=== PATIENT | male | born 1965 | race African-American/Black ===

== ENCOUNTER 2016-07-09 10:12 | Inpatient (IN) | payer OTHER ==
[2016-07-09 11:13] VITALS: BMI 21.2
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
[2016-07-09] MEDS ORDERED: P-EPHED 60MG/TRIPROLIDI 2.5MG TABLET PO PRN (12:58)
[2016-07-09] MEDS ORDERED: LOPERAMIDE HCL 2 MG CAPSULE PO PRN (12:58)
[2016-07-09] MEDS ORDERED: MAG HYDROX/AL HYDROX/SIMETH 30 ML UNIT-DOSE CUP PO PRN (12:58)
[2016-07-09] MEDS ORDERED: chlordiazePOXIDE HCL 25 MG CAPSULE PO PRN (12:58)
[2016-07-09] MEDS ORDERED: MENTHOL/PHENOL 1 EACH UD MM PRN (12:58)
[2016-07-09] MEDS ORDERED: hydrOXYzine PAMOATE 25 MG CAPSULE (FP) PO PRN (12:58)
[2016-07-09] MEDS ORDERED: diphenhydrAMINE HCL 50 MG CAPSULE PO PRN (12:58)
[2016-07-09] MEDS ORDERED: MAGNESIUM HYDROX 2400MG/30ML ORAL SUSPENSION 30 ML CUP PO PRN (12:58)
[2016-07-09] MEDS ORDERED: MAGNESIUM CITRATE 300 ML BOTTLE PO PRN (12:58)
[2016-07-09] MEDS ORDERED: IBUPROFEN 400 MG TABLET (FP) PO PRN (12:58)
[2016-07-09] MEDS ORDERED: ACETAMINOPHEN 325 MG TABLET (FP) PO PRN (12:58)
[2016-07-09] MEDS ORDERED: guaiFENesin/D-METHORPHAN HB 10 ML UNIT-DOSE CUPS PO PRN (12:58)
[2016-07-09] MEDS ORDERED: chlordiazePOXIDE HCL 25 MG CAPSULE PO ONE (14:10)
--- NOTE | 2016-07-09 14:27 | CONSULT ---
[facility] Psychiatric Consult - Data Date of interview: 07/09/16 Admission source: [facility] Identifying data: This is 51 years old male with no psychiatric hospitalization history intoxicated with: Alcohol, Cocaine and Cannabis Substance Abuse History: - Smoking Cessation. Smoking history: Current every day smoker. Have you smoked in the past 12 months: Yes. Aproximately how many cigarettes per day: 5. Hx Chewing Tobacco Use: No. Initiated information on smoking cessation: Yes. 'Breaking Loose' booklet given: 07/09/16. - Substance & Tx. History. Hx Alcohol Use: Yes (BEER/COGNAC). Hx Substance Use: Yes (CRACK /MARIJUANA). Substance Use Type: Alcohol, Cocaine, Marijuana. Hx Sub[facility] - Substances Abused. Crack. Route: Smoking. Frequency: Daily. Amount used: $50. Age of first use: 19. Date of Last Use: 07/08/16. Alcohol-beer/cognac. Route: Oral. Frequency: Daily. Amount used: 1 /2 6 pks.//2 pt. Age of first use: 17. Date of Last Use: . Marijuana. Route: Smoking. Frequency: Daily. Amount used: $20. Age of first use: 15. Date of Last Use: 07/08/16 Medical History: Asthma Psychiatric History: Patient reports hiostory of depression and anxiety, reports taking prior to admisison: Zyprexa 10 mg po qhs. Cymbalta 20mg poqd Physical/Sexual Abuse/Trauma History: Denies Additional Comment: [id number] po qhs. Cymbalta 20mg poqd Mental Status Exam - Mental Status Exam Alert and Oriented to: Person Cognitive Function: Fair Patient Appearance: Well Groomed Mood: Euthymic Affect: Mood Congruent Patient Behavior: Cooperative Speech Pattern: Appropriate Voice Loudness: Normal Thought Process: Goal Oriented Thought Disorder: Being Controlled Hallucinations: Denies Suicidal Ideation: Denies Homicidal Ideation: Denies Insight/Judgement: Fair Sleep: Difficulty falling asleep Appetite: Weight loss Muscle strength/Tone: Normal Gait/Station: Normal Additional Comments: [id number] po qhs. Cymbalta 20mg poqd Psychiatric Findings - Problem List ([place] 1, 2,3) (1) Alcohol dependence with uncomplicated withdrawal Current Visit: Yes Status: Acute (2) Cannabis dependence, uncomplicated Current Visit: Yes Status: Acute (3) Cocaine dependence, uncomplicated Current Visit: Yes Status: Acute (4) Drug-induced mood disorder Current Visit: Yes Status: Acute - Initial Treatment Plan Initial Treatment Plan: Zyprexa 5mg po qhs. Cymbalta 20mg poqd
[2016-07-09 14:28] LABS: HIV 1 & 2 AB NEGATIVE; HIV 1 AGp24 NEGATIVE
[2016-07-09] MEDS: DULoxetine HCL 20 MG CAPSULE.DR (FP) PO SCH (15:06)
[2016-07-09] MEDS: NICOTINE POLACRILEX 2 MG GUM BUC PRN (15:06)
[2016-07-09] MEDS: NICOTINE 14 MG/24 HOURS TOPICAL PATCH TD SCH (15:06)
--- NOTE | 2016-07-09 16:38 | EKG ---
Test Reason : Blood Pressure : / mmHG Vent. Rate : 057 BPM Atrial Rate : 057 BPM P-R Int : 132 ms QRS Dur : 078 ms QT Int : 430 ms P-R-T Axes : 021 023 012 degrees QTc Int : 418 ms SINUS BRADYCARDIA OTHERWISE NORMAL ECG NO PREVIOUS ECGS AVAILABLE Confirmed by YASH ELLIOTT MD ([id number]) on 07/09/2016 4:37:41 PM Referred By: Confirmed By:YASH ELLIOTT MD
[2016-07-09] MEDS: chlordiazePOXIDE HCL 25 MG CAPSULE PO SCH ×2 (17:31→22:02)
[2016-07-09 17:47] LABS: URINE APPEARANCE CLEAR; URINE BILIRUBIN NEGATIVE (NEGATIVE); URINE BLOOD NEGATIVE (NEGATIVE); URINE COLOR DKYELLOW; URINE GLUCOSE (UA) NEGATIVE (NEGATIVE); URINE KETONE 1+ (NEGATIVE); URINE LEUK ESTERASE NEGATIVE (NEGATIVE); URINE NITRITE NEGATIVE (NEGATIVE); URINE UROBILINOGEN NEGATIVE E.U./dl (0.2-1.0)
[2016-07-09 17:52] LABS: URINE PROTEIN 1+ (NEGATIVE)
[2016-07-09 18:27] LABS: URINE MUCUS MANY; URINE RBC 2 /hpf (0-3); URINE WBC 3 /hpf (3-5)
[2016-07-09] MEDS: THIAMINE HCL 100 MG TABLET (FP) PO SCH (22:02)
[2016-07-09] MEDS: OLANZapine 5 MG TABLET PO SCH (22:03)
[2016-07-10] MEDS: chlordiazePOXIDE HCL 25 MG CAPSULE PO SCH ×4 (06:06→22:27)
[2016-07-10 10:22] LABS: MCH 32.4 pg (25.7-33.7); MCHC 33.8 g/dl (32.0-35.9); MEAN CELL VOLUME 95.8 fl (80-96); MEAN PLT VOLUME 9.5 fl (7.5-11.1); PLATELET COUNT 222 K/MM3 (134-434); RDW 13.1 % (11.9-15.9); WHITE BLOOD COUNT 5.3 K/mm3 (4.0-10.0)
[2016-07-10] MEDS: PRENATAL VITAMINS W/ FOLIC ACID TABLET (FP) PO SCH (10:22)
[2016-07-10] MEDS: NICOTINE 14 MG/24 HOURS TOPICAL PATCH TD SCH (10:22)
[2016-07-10] MEDS: NICOTINE POLACRILEX 2 MG GUM BUC PRN (10:22)
[2016-07-10] MEDS: DULoxetine HCL 20 MG CAPSULE.DR (FP) PO SCH (10:22)
[2016-07-10 10:48] LABS: ALBUMIN 4.3 g/dl (3.4-5.0); BILIRUBIN,TOTAL 0.6 mg/dL (0.2-1.0); CALCIUM 9.3 mg/dL (8.5-10.1); COCKROFT - GAULT 52.4; CREATININE 1.4 mg/dL (0.7-1.3); TOT PROT 7.5 g/dl (6.4-8.2)
[2016-07-10 11:16] LABS: SICKLE CELL SCREEN NEGATIVE (NEGATIVE)
--- NOTE | 2016-07-10 12:18 | PN ---
[facility] CIWA - CIWA Score Nausea/Vomitin-Mild Nausea/No Vomiting Muscle Tremors: 4-Moderate,w/Arms Extend Anxiety: 3 Agitation: 4-Moderately Restless Paroxysmal Sweats: 4-Forehead w/Sweat Beads Orientation: 0-Oriented Tacttile Disturbances: 3-Moderate Itch/Numb/Burn Auditory Disturbances: 0-None Visual Disturbances: 0-None Headache: 0-None Present CIWA-Ar Total Score: 19 BHS Progress Note (SOAP) Subjective: Tremors, Anxious, Sweating. Objective: PT. A & O X 3. NO ACUTE DISTRESS. 07/10/16 12:15 Vital Signs Temperature 96.7 F L 07/10/16 10:16 Pulse Rate 72 07/10/16 10:16 Respiratory Rate 18 07/10/16 10:16 Blood Pressure 124/84 07/10/16 10:16 O2 Sat by Pulse Oximetry (%) Laboratory Tests 07/09/16 07/09/16 07/10/16 12:40 14:00 06:00 WBC 5.3 RBC 4.29 Hgb 13.9 Hct 41.1 MCV 95.8 MCHC 33.8 RDW 13.1 Plt Count 222 MPV 9.5 Sickle Cell Screen Negative Sodium Potassium Chloride Carbon Dioxide Anion Gap BUN Creatinine Creat Clearance w eGFR Random Glucose Calcium Total Bilirubin AST ALT Alkaline Phosphatase Total Protein Albumin Urine Color Dkyellow Urine Appearance Clear Urine pH 5.0 Ur Specific [place] >= 1.030 H Urine Protein 1+ H Urine Glucose (UA) Negative Urine Ketones 1+ H Urine Blood Negative Urine Nitrite Negative Urine Bilirubin Negative Urine Urobilinogen Negative Ur Leukocyte Esterase Negative Urine RBC 2 Urine WBC 3 Ur Epithelial Cells Rare Urine Mucus Many HIV 1&2 Antibody Screen Negative HIV P24 Antigen Negative 07/10/16 06:00 WBC RBC Hgb Hct MCV MCHC RDW Plt Count MPV Sickle Cell Screen Sodium 143 Potassium 3.7 Chloride 105 Carbon Dioxide 29 D Anion Gap 9 BUN 31 H D Creatinine 1.4 H D Creat Clearance w eGFR 53.86 Random Glucose 149 H D Calcium 9.3 Total Bilirubin 0.6 D AST 13 L D ALT 19 Alkaline Phosphatase 110 D Total Protein 7.5 Albumin 4.3 Urine Color Urine Appearance Urine pH Ur Specific [place] Urine Protein Urine Glucose (UA) Urine Ketones Urine Blood Urine Nitrite Urine Bilirubin Urine Urobilinogen Ur Leukocyte Esterase Urine RBC Urine WBC Ur Epithelial Cells Urine Mucus HIV 1&2 Antibody Screen HIV P24 Antigen LABS NOTED. Assessment: 07/10/16 12:15 WITHDRAWAL SYMPTOMS. Plan: CONTINUE DETOX. D/C MAGNESIUM CONTAINING MEDS. BGM ACBK TOMORROW FOR ELEVATED ADMISSION RANDOM GLUCOSE LEVEL. ADVISED PATIENT TO FOLLOW-UP WITH HEEL SEAT LASTER AFTER DISCHARGE FROM DETOX FOR GENERAL MEDICAL ASSESSMENT AND FOR ABNORMAL ADMISSION RENAL AND UA VALUES.
[2016-07-10] MEDS: OLANZapine 5 MG TABLET PO SCH (22:27)
[2016-07-10] MEDS: THIAMINE HCL 100 MG TABLET (FP) PO SCH (22:27)
[2016-07-11] MEDS: chlordiazePOXIDE HCL 25 MG CAPSULE PO SCH ×2 (05:50→10:16)
[2016-07-11] MEDS: PRENATAL VITAMINS W/ FOLIC ACID TABLET (FP) PO SCH (10:15)
[2016-07-11] MEDS: DULoxetine HCL 20 MG CAPSULE.DR (FP) PO SCH (10:15)
[2016-07-11] MEDS: NICOTINE 14 MG/24 HOURS TOPICAL PATCH TD SCH (10:15)
[2016-07-11] MEDS: NICOTINE POLACRILEX 2 MG GUM BUC PRN (10:35)
--- NOTE | 2016-07-11 14:50 | PN ---
[facility] CIWA - CIWA Score Nausea/Vomitin-Mild Nausea/No Vomiting Muscle Tremors: 3 Anxiety: 3 Agitation: 4-Moderately Restless Paroxysmal Sweats: 2 Orientation: 2-Disoriented Date<2 days Tacttile Disturbances: 2-Mild Itch/Numbness/Burn Auditory Disturbances: 0-None Visual Disturbances: 0-None Headache: 0-None Present CIWA-Ar Total Score: 17 S Progress Note (SOAP) Subjective: Fatigue, Tremors, Sweating. Objective: PT. A & O X 2 (DISORIENTED ABOUT DAY / DATE). PT. OBSERVED AMBULATING ON UNIT. NO ACUTE DISTRESS. PT. DENIES CHEST PAIN. 07/11/16 14:47 Vital Signs Temperature 96.1 F L 07/11/16 13:02 Pulse Rate 57 L 07/11/16 13:02 Respiratory Rate 18 07/11/16 13:02 Blood Pressure 142/92 07/11/16 13:02 O2 Sat by Pulse Oximetry (%) Laboratory Tests 07/09/16 07/09/16 07/10/16 12:40 14:00 06:00 WBC 5.3 RBC 4.29 Hgb 13.9 Hct 41.1 MCV 95.8 MCHC 33.8 RDW 13.1 Plt Count 222 MPV 9.5 Sickle Cell Screen Negative Sodium Potassium Chloride Carbon Dioxide Anion Gap BUN Creatinine Creat Clearance w eGFR POC Glucometer Random Glucose Calcium Total Bilirubin AST ALT Alkaline Phosphatase Total Protein Albumin Urine Color Dkyellow Urine Appearance Clear Urine pH 5.0 Ur Specific [place] >= 1.030 H Urine Protein 1+ H Urine Glucose (UA) Negative Urine Ketones 1+ H Urine Blood Negative Urine Nitrite Negative Urine Bilirubin Negative Urine Urobilinogen Negative Ur Leukocyte Esterase Negative Urine RBC 2 Urine WBC 3 Ur Epithelial Cells Rare Urine Mucus Many RPR Titer HIV 1&2 Antibody Screen Negative HIV P24 Antigen Negative 07/10/16 07/10/16 07/11/16 06:00 06:00 05:49 WBC RBC Hgb Hct MCV MCHC RDW Plt Count MPV Sickle Cell Screen Sodium 143 Potassium 3.7 Chloride 105 Carbon Dioxide 29 D Anion Gap 9 BUN 31 H D Creatinine 1.4 H D Creat Clearance w eGFR 53.86 POC Glucometer 93 Random Glucose 149 H D Calcium 9.3 Total Bilirubin 0.6 D AST 13 L D ALT 19 Alkaline Phosphatase 110 D Total Protein 7.5 Albumin 4.3 Urine Color Urine Appearance Urine pH Ur Specific [place] Urine Protein Urine Glucose (UA) Urine Ketones Urine Blood Urine Nitrite Urine Bilirubin Urine Urobilinogen Ur Leukocyte Esterase Urine RBC Urine WBC Ur Epithelial Cells Urine Mucus RPR Titer Nonreactive HIV 1&2 Antibody Screen HIV P24 Antigen LABS NOTED. Assessment: 07/11/16 14:48 WITHDRAWAL SYMPTOMS. Plan: CONTINUE DETOX. ADVISED PATIENT TO FOLLOW-UP WITH FLOORING SALES MANAGER AFTER DISCHARGE FROM DETOX FOR GENERAL MEDICAL ASSESSMENT AND FOR ABNORMAL ADMISSION RENAL LAB VALUES (BUN, CREATININE , GFR).
[2016-07-11] MEDS: chlordiazePOXIDE 5 MG CAPSULE PO SCH ×2 (17:22→22:33)
[2016-07-11] MEDS: OLANZapine 5 MG TABLET PO SCH (22:33)
[2016-07-11] MEDS: THIAMINE HCL 100 MG TABLET (FP) PO SCH (22:33)
[2016-07-12] MEDS: chlordiazePOXIDE 5 MG CAPSULE PO SCH ×2 (05:28→10:34)
[2016-07-12] MEDS: PRENATAL VITAMINS W/ FOLIC ACID TABLET (FP) PO SCH (10:33)
[2016-07-12] MEDS: NICOTINE 14 MG/24 HOURS TOPICAL PATCH TD SCH (10:34)
[2016-07-12] MEDS: NICOTINE POLACRILEX 2 MG GUM BUC PRN ×2 (10:35→17:23)
[2016-07-12] MEDS: DULoxetine HCL 20 MG CAPSULE.DR (FP) PO SCH (10:53)
--- NOTE | 2016-07-12 14:28 | PN ---
BHS Progress Note (SOAP) Subjective: Anxious, sweating, chills Objective: 07/12/16 14:24 Last Vital Signs Temp Pulse Resp BP Pulse Ox 97.4 F L 63 18 144/80 07/12/16 13:28 07/12/16 13:28 07/12/16 13:28 07/12/16 13:28 Laboratory Tests 07/09/16 07/09/16 07/10/16 12:40 14:00 06:00 WBC 5.3 RBC 4.29 Hgb 13.9 Hct 41.1 MCV 95.8 MCHC 33.8 RDW 13.1 Plt Count 222 MPV 9.5 Sickle Cell Screen Negative Sodium Potassium Chloride Carbon Dioxide Anion Gap BUN Creatinine Creat Clearance w eGFR POC Glucometer Random Glucose Calcium Total Bilirubin AST ALT Alkaline Phosphatase Total Protein Albumin Urine Color Dkyellow Urine Appearance Clear Urine pH 5.0 Ur Specific [place] >= 1.030 H Urine Protein 1+ H Urine Glucose (UA) Negative Urine Ketones 1+ H Urine Blood Negative Urine Nitrite Negative Urine Bilirubin Negative Urine Urobilinogen Negative Ur Leukocyte Esterase Negative Urine RBC 2 Urine WBC 3 Ur Epithelial Cells Rare Urine Mucus Many RPR Titer HIV 1&2 Antibody Screen Negative HIV P24 Antigen Negative 07/10/16 07/10/16 07/11/16 06:00 06:00 05:49 WBC RBC Hgb Hct MCV MCHC RDW Plt Count MPV Sickle Cell Screen Sodium 143 Potassium 3.7 Chloride 105 Carbon Dioxide 29 D Anion Gap 9 BUN 31 H D Creatinine 1.4 H D Creat Clearance w eGFR 53.86 POC Glucometer 93 Random Glucose 149 H D Calcium 9.3 Total Bilirubin 0.6 D AST 13 L D ALT 19 Alkaline Phosphatase 110 D Total Protein 7.5 Albumin 4.3 Urine Color Urine Appearance Urine pH Ur Specific [place] Urine Protein Urine Glucose (UA) Urine Ketones Urine Blood Urine Nitrite Urine Bilirubin Urine Urobilinogen Ur Leukocyte Esterase Urine RBC Urine WBC Ur Epithelial Cells Urine Mucus RPR Titer Nonreactive HIV 1&2 Antibody Screen HIV P24 Antigen 07/12/16 06:02 WBC RBC Hgb Hct MCV MCHC RDW Plt Count MPV Sickle Cell Screen Sodium Potassium Chloride Carbon Dioxide Anion Gap BUN Creatinine Creat Clearance w eGFR POC Glucometer 93 Random Glucose Calcium Total Bilirubin AST ALT Alkaline Phosphatase Total Protein Albumin Urine Color Urine Appearance Urine pH Ur Specific [place] Urine Protein Urine Glucose (UA) Urine Ketones Urine Blood Urine Nitrite Urine Bilirubin Urine Urobilinogen Ur Leukocyte Esterase Urine RBC Urine WBC Ur Epithelial Cells Urine Mucus RPR Titer HIV 1&2 Antibody Screen HIV P24 Antigen Labs noted: Bun 31, serum creatinine 1.4, GFR 53.86, UA: 1+ protein Assessment: 07/12/16 14:26 Withdrawal symptoms Noted with prerenal azotemia and proteinuria Plan: Continue detox Prerenal azotemia: encouraged to drink lots of water Proteinuria: encouraged to drink more water
[2016-07-12] MEDS: chlordiazePOXIDE HCL 10 MG CAPSULE PO SCH ×2 (17:22→22:04)
[2016-07-12] MEDS: THIAMINE HCL 100 MG TABLET (FP) PO SCH (22:03)
[2016-07-12] MEDS: OLANZapine 5 MG TABLET PO SCH (22:04)
[2016-07-13 06:10] VITALS: BP 138/84; PULSE 69; TEMP 96.9
[2016-07-13] MEDS: chlordiazePOXIDE HCL 10 MG CAPSULE PO SCH (06:31)
[2016-07-13] MEDS: DULoxetine HCL 20 MG CAPSULE.DR (FP) PO SCH (09:19)
[2016-07-13] MEDS: PRENATAL VITAMINS W/ FOLIC ACID TABLET (FP) PO SCH (09:19)
[2016-07-13] MEDS: NICOTINE 14 MG/24 HOURS TOPICAL PATCH TD SCH (09:20)
--- NOTE | 2016-07-13 09:31 | DS ---
[facility] Detox Discharge Summary Admission Date: 07/09/16 Discharge Date: 07/13/16 - History Present History: Alcohol Dependence, Cannabis Dependence, Cocaine Dependence Pertinent Past History: Asthma - Physical Exam Results Vital Signs: Vital Signs Temperature 96.9 F L 07/13/16 06:09 Pulse Rate 69 07/13/16 06:09 Respiratory Rate 16 07/13/16 06:09 Blood Pressure 138/84 07/13/16 06:09 O2 Sat by Pulse Oximetry (%) Pertinent Admission Physical Exam Findings: Withdrawal sx. Laboratory Last Values WBC 5.3 K/mm3 (4.0-10.0) 07/10/16 06:00 RBC 4.29 M/mm3 (4.00-5.60) 07/10/16 06:00 Hgb 13.9 GM/dL (11.7-16.9) 07/10/16 06:00 Hct 41.1 % (35.4-49) 07/10/16 06:00 MCV 95.8 fl (80-96) 07/10/16 06:00 MCHC 33.8 g/dl (32.0-35.9) 07/10/16 06:00 RDW 13.1 % (11.9-15.9) 07/10/16 06:00 Plt Count 222 K/MM3 (134-434) 07/10/16 06:00 MPV 9.5 fl (7.5-11.1) 07/10/16 06:00 Sickle Cell Screen Negative (NEGATIVE) 07/10/16 06:00 Sodium 143 mmol/L (136-145) 07/10/16 06:00 Potassium 3.7 mmol/L (3.5-5.1) 07/10/16 06:00 Chloride 105 mmol/L (98-107) 07/10/16 06:00 Carbon Dioxide 29 mmol/L (21-32) D 07/10/16 06:00 Anion Gap 9 (8-16) 07/10/16 06:00 BUN 31 mg/dL (7-18) H D 07/10/16 06:00 Creatinine 1.4 mg/dL (0.7-1.3) H D 07/10/16 06:00 Creat Clearance w eGFR 53.86 (>60) 07/10/16 06:00 POC Glucometer 93 UNITS (()) 07/12/16 06:02 Random Glucose 149 mg/dL (74-106) H D 07/10/16 06:00 Calcium 9.3 mg/dL (8.5-10.1) 07/10/16 06:00 Total Bilirubin 0.6 mg/dL (0.2-1.0) D 07/10/16 06:00 AST 13 U/L (15-37) L D 07/10/16 06:00 ALT 19 U/L (12-78) 07/10/16 06:00 Alkaline Phosphatase 110 U/L (45-117) D 07/10/16 06:00 Total Protein 7.5 g/dl (6.4-8.2) 07/10/16 06:00 Albumin 4.3 g/dl (3.4-5.0) 07/10/16 06:00 Urine Color Dkyellow 07/09/16 14:00 Urine Appearance Clear 07/09/16 14:00 Urine pH 5.0 (5.0-8.0) 07/09/16 14:00 Ur Specific [place] >= 1.030 (1.005-1.025) H 07/09/16 14:00 Urine Protein 1+ (NEGATIVE) H 07/09/16 14:00 Urine Glucose (UA) Negative (NEGATIVE) 07/09/16 14:00 Urine Ketones 1+ (NEGATIVE) H 07/09/16 14:00 Urine Blood Negative (NEGATIVE) 07/09/16 14:00 Urine Nitrite Negative (NEGATIVE) 07/09/16 14:00 Urine Bilirubin Negative (NEGATIVE) 07/09/16 14:00 Urine Urobilinogen Negative E.U./dl (0.2-1.0) 07/09/16 14:00 Ur Leukocyte Esterase Negative (NEGATIVE) 07/09/16 14:00 Urine RBC 2 /hpf (0-3) 07/09/16 14:00 Urine WBC 3 /hpf (3-5) 07/09/16 14:00 Ur Epithelial Cells Rare /hpf (FEW) 07/09/16 14:00 Urine Mucus Many 07/09/16 14:00 RPR Titer Nonreactive (NONREACTIVE) 07/10/16 06:00 HIV 1&2 Antibody Screen Negative 07/09/16 12:40 HIV P24 Antigen Negative 07/09/16 12:40 labs noted - Treatment Hospital Course: Detox Protocol Followed, Detoxed Safely, Responded well, Discharged Condition Good, Rehab Referral Accepted Patient has Accepted a Rehab Referral to: [facility] - Medication Discharge Medications: Ambulatory Orders Duloxetine HCl [Cymbalta] 20 mg PO DAILY 03/16/11 Olanzapine [ZyPREXA -] 10 mg PO HS #0 tablet 03/20/11 Duloxetine HCl [Cymbalta -] 20 mg PO DAILY #30 cap 07/09/16 Olanzapine [Zyprexa -] 5 mg PO HS #30 tablet 07/09/16 - Diagnosis (1) Alcohol dependence with uncomplicated withdrawal Current Visit: Yes Status: Acute (2) Cannabis dependence, uncomplicated Current Visit: Yes Status: Acute (3) Cocaine dependence, uncomplicated Current Visit: Yes Status: Acute (4) Drug-induced mood disorder Current Visit: Yes Status: Acute (5) History of asthma Current Visit: Yes Status: Chronic - AMA Did Patient Leave Against Medical Advice: No
== END 2016-07-13 09:39 | disposition home or self-care (01) | DRG 774 ==
LOC: YASAS 10:12 → Y3N 12:30
PROVIDERS: ADMIT Internal Medicine; ATTEND Internal Medicine
PROC: HZ2ZZZZ Detoxification Services for Substance Abuse Treatment (ICD-10-PCS; principal; 2016-07-13)
DX: F10.230 Alcohol dependence with withdrawal, uncomplicated (principal); F14.20 Cocaine dependence, uncomplicated; F12.20 Cannabis dependence, uncomplicated; F19.24 Other psychoactive substance dependence with psychoactive substance-induced mood disorder; F32.9 Major depressive disorder, single episode, unspecified; J45.909 Unspecified asthma, uncomplicated
CPT/HCPCS: 36415; 80053; 81003; 81015; 85027; 85660; 86593; 87389; 93005; 93010